=== PATIENT | female | born 1940 | race Caucasian/White ===

== ENCOUNTER → 2016-12-25 | Outpatient (CLI) | payer MEDICARE, OTHER ==
[~2016-12-25] MED LIST: ALENDRONATE; ALPRAZOLAM; AMLO10CA42 PO; AMLODIPINE; ATENOLOL; ATORVASTATIN; CIPROFLOXACIN; GLIM2TAB33 PO; GLIMEPERIDE; HCTZ; HYDR12.524 PO; HYDR12.527 PO; INSUINJ37 SUBCUT; KOMBIGLYZE; PANTOPRAZOLE
[2016-12-25 14:47] LABS: Basophils # (auto) 0 uL; Basophils % (auto) 0.4 % (0.0-2.0); Eosinophils # (auto) 0.5 uL; Eosinophils % (auto) 7.2 % (0.0-7.0); Hematocrit 40.5 % (36.0-46.0); Hemoglobin 13.7 g/dL (12.2-16.2); Lymphocytes # (auto) 1.3 uL; Lymphocytes % (auto) 20.4 % (10.0-50.0); Mean Corpuscular Hemoglobin 31.5 pg (28.0-32.0); Mean Corpuscular Hgb Conc. 33.7 g/dL (32.0-36.0); Mean Corpuscular Volume 93.3 fL (80.0-100.0); Mean Platelet Volume 9.7 fL (7.4-10.4); Monocytes # (auto) 0.4 uL; Monocytes % (auto) 6.6 % (0.0-12.0); Neutrophils # (auto) 4.2 uL; Neutrophils % (auto) 65.4 % (37.0-80.0); Platelet Count (auto) 233 10^3/uL (140-450); Red Cell Distribution Width 12.6 % (11.6-16.0); White Blood Cell 6.4 10^3/uL (4.4-10.8)
[2016-12-25 14:52] LABS: Urine Bilirubin Negative (Negative); Urine Blood Negative /uL (Negative); Urine Color Yellow (Yellow); Urine Ketone Negative (Negative); Urine RBC 5 /hpf (0 - 4); Urine Squamous Epithelial Cell FEW /hpf (<5); Urine Urobilinogen Normal (Negative); Urine WBC Clumps PRESENT /hpf (None Seen)
[2016-12-25 14:53] LABS: Albumin 3.6 g/dL (3.4-5.0); BUN/Creatinine Ratio 29.3; Calcium 8.6 mg/dL (8.5-10.1); Potassium 4.3 mmol/L (3.5-5.1)
[2016-12-25 14:56] LABS: Bilirubin, Total 0.6 mg/dL (0.2-1.0); Total Protein 6.6 g/dL (6.4-8.2); Urine Glucose 2+ mg/dL (Normal); Urine Nitrite POSITIVE (Negative)
[2016-12-25 14:59] LABS: INR 1.02 (0.9-1.15); Partial Thromboplastin Time 25.4 sec (22.64-33.71); Prothrombin Time 10.5 sec (9.37-12.3)
== END | disposition home or self-care (01) ==
LOC: LAB 14:16
PROVIDERS: ATTEND Podiatrist Foot & Ankle Surgery
DX: Z01.810 Encounter for preprocedural cardiovascular examination (principal); R79.1 Abnormal coagulation profile
CPT/HCPCS: 36415; 80053; 81001; 85025; 85610; 85730

== ENCOUNTER 2016-12-31 06:02 | Day surgery (SDC) | payer MEDICARE, OTHER ==
[~2016-12-31] VITALS: Ht 157.5 cm; Wt 56.7 kg
[~2016-12-31 06:02] MED LIST changes: -ALENDRONATE; -ALPRAZOLAM; -AMLODIPINE; -ATENOLOL; -ATORVASTATIN; -CIPROFLOXACIN; -GLIMEPERIDE; -HCTZ; -KOMBIGLYZE; -PANTOPRAZOLE
[2016-12-31] MEDS ORDERED: ceFAZolin 1GM VL ONE (06:29)
[2016-12-31] MEDS ORDERED: NEOMYCIN-BACITRACIN-POLYM 15GM TOP OINT TOP ONE (06:30)
[2016-12-31] MEDS ORDERED: BUPIVACAINE 0.75% INJ 10ML MPV SDV IJ ONE ×2 (06:30→07:48)
[2016-12-31] MEDS ORDERED: ceFAZolin 1GM/50ML D5W 50 ML IV ONE (06:53)
[2016-12-31] MEDS ORDERED: MIDAZOLAM HCL 1MG/1ML-2 ML VIAL ONE ×2 (07:35→07:36)
[2016-12-31] MEDS ORDERED: fentaNYL CITRATE 100 MCG/2 ML VL ONE (07:35)
[2016-12-31] MEDS ORDERED: PROPOFOL 10 MG/ML 20 ML IV ONE (07:35)
[2016-12-31] MEDS ORDERED: ePHEDrine SULFATE 50 MG/ML AMP IV PRN (08:30)
[2016-12-31] MEDS ORDERED: hydrALAZINE HCL 20 MG/ML VL IV PRN (08:30)
[2016-12-31] MEDS ORDERED: MORPHINE SULF INJ 2 MG/ML SYRINGE 1ML IV PRN (08:30)
[2016-12-31] MEDS ORDERED: ONDANSETRON HCL 4 MG/2 ML VIAL IV ONE (08:30)
[2016-12-31 08:45] VITALS: BP 129/56
== END 2016-12-31 08:45 | disposition home or self-care (01) ==
LOC: SUR 06:02
PROVIDERS: ATTEND Podiatrist Foot & Ankle Surgery
DX: M20.42 Other hammer toe(s) (acquired), left foot (principal); M89.8X7 Other specified disorders of bone, ankle and foot; E11.9 Type 2 diabetes mellitus without complications
CPT/HCPCS: 28010; 28285; 82962; J0690; J2250; J2704; J3010; J3490; Q4139